=== PATIENT | female | born 1985 | race Caucasian/White ===

== ENCOUNTER → 2018-07-16 | Outpatient (CLI) | payer OTHER ==
[~2018-07-16] MED LIST: FLEXERIL PO; IRON159 MG PO; NORCO 5-325 TA1 EACH PO; PRENATAL COMPL1 EACH PO; PRENATAL PO; WELLBUTRIN XL150 MG PO
== END ==
LOC: M.CT 09:09
DX: N83.291 Other ovarian cyst, right side (principal); R31.9 Hematuria, unspecified; E66.3 Overweight; Z88.8 Allergy status to other drugs, medicaments and biological substances; Z68.29 Body mass index [BMI] 29.0-29.9, adult; Z80.3 Family history of malignant neoplasm of breast; Z83.3 Family history of diabetes mellitus

== ENCOUNTER 2020-02-02 22:17 | Emergency (ER) | payer OTHER ==
[~2020-02-02] VITALS: Ht 177.8 cm; Wt 122.5 kg
[2020-02-02] MEDS ORDERED: VYVANSE40 MG PO (22:23)
[2020-02-02 22:48] LABS: ABSOLUTE BASOPHILS 0.1 thou/uL (0.0-0.2); ABSOLUTE EOSINOPHILS 0.5 thou/uL (0.0-0.7); ABSOLUTE LYMPHOCYTES 3.8 thou/uL (0.8-5.3); ABSOLUTE MONOCYTES 0.7 thou/uL (0.0-1.2); ABSOLUTE NEUTROPHILS 5.8 thou/uL (1.6-8.1); BASOPHILS 0.7 %; CREATININE 0.9 mg/dL (0.6-1.3); EOSINOPHILS 4.7 %; HEMATOCRIT 43.3 % (37.0-47.0); HEMOGLOBIN 14.9 gm/dL (12.0-15.0); LYMPHOCYTES 34.9 %; MAGNESIUM 2.3 mg/dL (1.8-2.4); MCH 33.1 pg (26.0-34.0); MCHC 34.4 g/dL (28.0-37.0); MONOCYTES 6.2 %; MPV 8.9 fl. (7.2-11.1); NUCLEATED RBCS 0 /100WBC; PLATELET COUNT* 243 thou/uL (150-400); POLYS 53.5 %; WBC 10.9 thou/uL (4.0-11.0)
[2020-02-02 22:49] LABS: POTASSIUM 2.8 mmol/L (3.5-5.1)
[2020-02-02 23:57] VITALS: BP 148/106
--- NOTE | 2020-02-03 10:20 | EKG ---
[place] [address] ELECTROCARDIOGRAM REPORT Name: ROMAN GARZA Room: [facility]#: [id number] Admission: 02/02/20 Attend Phys: Discharge: 02/02/20 Date of : 89 Date of Service: 02/02/202234 Report #: [id number] THIS REPORT FOR: //name// [facility] ED Test Date: 2020-02-02 Test Time: 22:35:28 Pat Name: ROMAN GARZA Department: Room: Gender: Amphibian Crewmember: CLIFFORD : 1985 Requested By: Marilu Moses Order Number: [id number] MD: Jonathan Hinojosa Measurements Intervals [place] Rate: 66 P: -7 KS: 146 QRS: 56 QRSD: 102 T: 32 QT: 400 QTc: 420 Interpretive Statements Sinus rhythm RSR' in V1 or V2, right VCD or RVH Compared to ECG 05/13/2008 10:36:26 Sinus arrhythmia no longer present Electronically Signed On 02-03-2020 10:19:17 CDT by Jonathan Hinojosa [email or web address] <ELECTRONICALLY SIGNED> By: Jonathan Hinojosa MD, FAC 02/03/20 [id number] Jonathan Hinojosa MD, [facility] /EPI
== END 2020-02-02 23:58 | disposition home or self-care (01) ==
LOC: M.ERS 22:17
PROVIDERS: Emergency Medicine
DX: E87.6 Hypokalemia (principal); F10.129 Alcohol abuse with intoxication, unspecified; F90.9 Attention-deficit hyperactivity disorder, unspecified type; F17.210 Nicotine dependence, cigarettes, uncomplicated; Y90.7 Blood alcohol level of 200-239 mg/100 ml